=== PATIENT | female | born 1990 | race Caucasian/White ===

== ENCOUNTER 2022-08-30 09:36 | Outpatient (CLI) | payer OTHER, SELFPAY ==
--- NOTE | 2022-08-30 09:45 | CRLHL7_ITS ---
For Patients: As a result of the Cures Act, medical imaging exams and procedure reports are released immediately into your electronic medical record. You may view this report before your referring provider. If you have questions, please contact your health care provider. INDICATION: First trimester scan, establish dates. COMPARISON: None. TECHNIQUE: Real-time álvarez-scale imaging of the pelvis was performed. FINDINGS: Sonographic imaging demonstrates a single living intrauterine gestation. The embryo demonstrates a regular cardiac rate measuring 174 beats per minute. The embryo`s crown-rump length measurement of 1.9 cm corresponds to a gestational age of 8 weeks 3 days with a sonographic due date of 04/08/2023. There is a normal-appearing yolk sac. There are no gross abnormalities noted within the embryo at this early state of development. The gestational sac has a normal appearance. There is no evidence of a perigestational hemorrhage. The amount of fluid within the sac appears appropriate for gestational age. The cervix is closed. The myometrium appears normal. The ovaries are of normal size. Corpus luteal cyst left ovary. There are no suspicious fluid collections noted in the cul-de-sac. IMPRESSION: Normal first trimester OB ultrasound exam. Gestational age calculated at 8 weeks 3 days with a sonographic due date of 04/08/2023. Dictated by Niels Headley MD @ 08/30/2022 12:11:55 PM (Electronically Signed)
== END 2022-08-30 09:37 | disposition home or self-care (01) ==
LOC: US 09:38
PROVIDERS: PCP Physician Assistant Medical; Visit Provider Registered Nurse
DX: Z34.91 Encounter for supervision of normal pregnancy, unspecified, first trimester (principal); Z3A.08 8 weeks gestation of pregnancy
CPT/HCPCS: 76817

== ENCOUNTER 2022-08-30 11:18 | Outpatient (CLI) | payer OTHER, SELFPAY ==
[2022-08-30 17:20] LABS: Chlamydia DNA Amplified* NOT DETECTED (No Detected); GC DNA Amplified* NOT DETECTED (No Detected)
== END 2022-08-30 11:19 | disposition home or self-care (01) ==
PROVIDERS: PCP Physician Assistant Medical; Visit Provider Registered Nurse
DX: Z34.91 Encounter for supervision of normal pregnancy, unspecified, first trimester (principal); Z3A.08 8 weeks gestation of pregnancy
CPT/HCPCS: 86592; 86703; 86762; 86787; 86803; 86850; 86900; 86901; 87086; 87340; 87491; 87591

== ENCOUNTER 2023-01-17 12:59 | Outpatient (CLI) | payer BC, SELFPAY | END 2023-01-17 13:00 | disposition home or self-care (01) | PROVIDERS: PCP Physician Assistant Medical; Visit Provider Obstetrics & Gynecology | DX: Z34.93 Encounter for supervision of normal pregnancy, unspecified, third trimester (principal); Z3A.28 28 weeks gestation of pregnancy | CPT/HCPCS: 86592 ==

== ENCOUNTER 2023-01-23 08:32 | Outpatient (CLI) | payer BC, SELFPAY | END 2023-01-23 08:33 | disposition home or self-care (01) | LOC: NFLDREF 01-24 04:07 | PROVIDERS: PCP Physician Assistant Medical; Referring Provider Physician Assistant Medical; Visit Provider Obstetrics & Gynecology | DX: Z34.93 Encounter for supervision of normal pregnancy, unspecified, third trimester (principal) | CPT/HCPCS: 82951; 82952 ==

== ENCOUNTER 2023-03-01 12:51 | Outpatient (CLI) | payer BC, SELFPAY ==
[2023-03-01 23:05] LABS: Ferritin* 17.3 ng/mL (6.24-137.0)
== END 2023-03-01 12:52 | disposition home or self-care (01) ==
LOC: FRMREF 12:52
PROVIDERS: PCP Physician Assistant Medical; Visit Provider Registered Nurse
DX: Z34.93 Encounter for supervision of normal pregnancy, unspecified, third trimester (principal); Z3A.34 34 weeks gestation of pregnancy
CPT/HCPCS: 82728

== ENCOUNTER 2023-03-12 10:13 | Outpatient (CLI) | payer BC, SELFPAY | END 2023-03-12 10:14 | disposition home or self-care (01) | LOC: NFLDREF 03-15 09:31 | PROVIDERS: PCP Physician Assistant Medical; Referring Provider Physician Assistant Medical; Visit Provider Obstetrics & Gynecology | DX: Z34.90 Encounter for supervision of normal pregnancy, unspecified, unspecified trimester (principal) | CPT/HCPCS: 87081; 87653 ==

== ENCOUNTER 2023-03-30 20:52 | Inpatient (IN) | payer BC, SELFPAY ==
[2023-03-30] VITALS (7 sets, daily range): BP systolic 115; BP diastolic 79; PULSE 88–99; RESP 16; TEMP 36.5–36.9; O2SAT 97–98; BMI 32.1
[2023-03-30 20:36] LABS: Amnisure Rom* POSITIVE
[2023-03-30] MEDS: LACTATED RINGERS 1000 ML 1,000 ML 125 ML IV (21:03)
--- NOTE | 2023-03-30 21:42 | W.PM.LDBA ---
Subjective History of Present Illness Narrative: Patient is being admitted to Labor and Delivery in labor. She is a 32 year old at 38 3/7 weeks gestation. Her full history and physical was dictated by Ligia Jack CNM on 03/28/23. Please see this for details.Patient states that at around 6:30 pm tonight felt a watery like discharge and more intense uterine contractions. Upon evaluation at L&D by nurses AmniSure positive, regular uterine contractions and cervix from 1.5cm to 3cm. Patient admitted in labor. Specific Issues/Plans : Kai. Daughter: Ilsa. Baby: Girl! H&P done by Ligia Jack CNM on 03/28/2023 1. H/o genital HSV (not disclosed at first OB visit). Prophylaxis at 36 weeks, ordered on 03/01. 2. H/o migraines. Has rx for fioricet. Rec. magnesium supplement. 3. H/o anxiety and depression. Doing well at first OB visit. Does not have therapist. Hasn't taken meds for years. 4. Elevated 28wk 1hr GTT 01/17/23: 179 3hr GTT: Passed 5. Mild anemia at 28 weeks: hgb 10.6 - Hgb 10.3 at 34 weeks despite PO iron supplement. Iron infusion ordered, insurance processing ongoing. Recheck Hgb to be ordered 2 weeks following infusion. 6. GBS positive. Amoxicillin and pencillin allergy - hives noted in chart. Flu: 03/21/23 Covid: J+J x1, no boosters. Recommended. Tdap 02/01/23 OB - Problem Based A/P Additional Plan (1) SROM (spontaneous rupture of membranes): Status: Acute Plan 1. GBS positive, significant allergy to penicillin, will start Vancomycin per protocol. 2. SROM, re check cervix in 4-6 hours unless significant clinical changes. 3. Patient confirms she has been utilizing valacyclovir for HSV prevention, no symptoms currently, no visible lesions. 4. Patient desires unmedicated labor, but no contraindication for this if she changes her mind. 5. If unchanged at next cervical check would recommend starting IV Oxytocin. 6. Expect a vaginal delivery. OB Exam Physical Exam Vital signs: Temp Pulse Resp BP Pulse Ox 97.7 F 88 16 115/79 98 03/30/23 21:08 03/30/23 19:55 03/30/23 19:55 03/30/23 19:55 03/30/23 19:55 Detailed Labor and Delivery Exam Patient Gravid: Yes Dilation (cm): 3 Tachysystole: No Contraction intensity: Moderate Fetus (Single) Amniotic Membrane Status: SROM (6:30pm) Amniotic Membrane Fluid Description: Clear Heart Rate Baseline: 125 Monitor Accelerations: Present Monitor Decelerations: None Senior Care Variability: Moderate (6-25)
[2023-03-30 22:30] LABS: Basophils Absolute Auto 0.02 K/uL (0.00-0.30); Basophils Percent Auto 0.2 % (0.0-3.0); Eosinophils Absolute Auto 0.03 K/uL (0.00-0.50); Eosinophils Percent Auto 0.3 % (0.0-7.0); Hematocrit 32.1 % (33.0-51.0); Hemoglobin* 11.3 gm/dL (12.0-16.0); Immature Granulocytes Abs Auto 0.17 K/uL (0.00-0.30); Immature Granulocytes Pct Auto 1.7 %; Lymphocytes Absolute Auto 2.42 K/uL (0.90-2.90); Lymphocytes Percent Auto 24.6 % (20-44); Mean Corpuscular HGB Conc 35 gm/dL (32-36); Mean Corpuscular Hemoglobin 33 pg (26-34); Mean Corpuscular Volume 93 fL (80-100); Monocytes Percent Auto 8.1 % (0.0-11.0); Neutrophils Absolute Auto 6.39 K/uL (1.7-7.0); Neutrophils Percent Auto 65.1 % (42.0-72.0); Platelet Count* 173 K/uL (140-440); RDW Coefficient of Variation % 14.6 % (11.5-15.5); Red Blood Count 3.45 m/uL (4.00-5.20); White Blood Count* 9.83 K/uL (4.50-11.00)
[2023-03-30 22:40] LABS: Slide Review Reflex No
[2023-03-31] VITALS (24 sets, daily range): BP systolic 108–139; BP diastolic 65–79; PULSE 44–110; RESP 16; TEMP 36.4–37; O2SAT 81–100
[2023-03-31] MEDS: OXYTOCIN 30 unit/500 ML in NS 30 UNIT/500 ML BAG 300 UNIT IVPB (03:08)
[2023-03-31] MEDS: LIDOCAINE 1 % PF 30 ML INJECTION (03:15)
--- NOTE | 2023-03-31 03:39 | W.PM.OBVAGDE ---
OB Procedure Vag Delivery Mother Details Mother Details: The patient is a 33 year-old, 2, Para 1, admitted on 03/30/23 at 38 3/7 weeks gestation in labor for delivery. : 2 Para: 2 Weeks Gestation: 38.4 Admission Date: 03/30/23 Additional Details Amniotic Membrane Status: SROM (6:30pm) Amniotic Membrane Rupture Date: 03/30/23 Amniotic Membrane Rupture Time: 18:45 Amniotic Membrane Fluid Description: Clear Analgesia/Anesthesia Type: None Waterbirth: No Pitcoin: No Intrapartal Events: None Labor Onset: 23:30 Complete: 02:34 Pushin:36 Heart: heart tones during second stage were category 2. Early decelerations some with slower recover while . Good accelerations with scalp stimulation. Delivery Details Delivery Date: 03/31/23 Delivery Time: 03:08 Route of delivery: Gender: Female Viability: Alive; Heart Rate Present Position at Delivery: OA Delivery Details: Delivered over intact perineum via spontaneous vaginal delivery. was placed on maternal abdomen.? Cord was clamped and cut after a 30-60 second delay. Nose and mouth were bulb suctioned.? Infant weight pending. 1 Minute Interval Total Score: 8 5 Minute Interval Total Score: 9 Additional Details Shoulder Dystocia: No Placenta Delivery Time: 03:14 Placental Delivery Description: Spontaneous Delivery repair: Vicryl Procedure Done: Global Blood Loss: 300 Laceration: Perineal - 2nd Degree Episiotomy Description: None Blood Loss Measurement Type: QBL Bakri Used: No Sponge/Need Count Correct: Yes Cord Vessel Description: 3 Vessels Event Summary Status: Mother and were stable after delivery. Disposition: floor
[2023-03-31] MEDS: LANOLIN CREAM 1 APPLIC TOPICAL (04:00)
[2023-03-31] MEDS: IBUPROFEN 600 MG TABLET PO ×3 (04:17→22:30)
[2023-03-31] MEDS: ACETAMINOPHEN 500 MG TABLET 1000 MG PO ×2 (08:32→19:34)
[2023-03-31] MEDS: DOCUSATE SODIUM 100 MG CAPSULE PO (08:33)
[2023-04-01 01:22] VITALS: BP 104/72; PULSE 76; RESP 16; TEMP 36.4; O2SAT 97
[2023-04-01] MEDS: IBUPROFEN 600 MG TABLET PO (04:18)
[2023-04-01 06:38] LABS: Hemoglobin* 9.9 gm/dL (12.0-16.0)
[2023-04-01 08:30] VITALS: BP 101/67; PULSE 77; RESP 16; TEMP 36.5; O2SAT 95
[2023-04-01] MEDS: DOCUSATE SODIUM 100 MG CAPSULE PO (08:34)
--- NOTE | 2023-04-01 09:14 | P.DS_ITS ---
DS: Providers Provider Time Seen by Provider: 09:14 Date Seen: 04/01/23 Date of admission: 03/30/23 20:52 Primary care physician: Lucas Trevizo PA-C Admitting Clinician: Rosalie Montesinos MD Attending Physician on discharge: Jorgito Brooks MD DS: Diagnosis Discharge Diagnosis (1) Vaginal delivery: Status: Acute (2) Lactating mother: Status: Acute (3) Depression: Status: Acute (4) Anxiety: Status: Acute (5) SROM (spontaneous rupture of membranes): Status: Acute (6) Genital herpes: Status: Acute Exam Narrative: Exam Narrative: General: No acute distress Psych: Alert and oriented x 3, full affect HEENT: Normocephalic, atraumatic Abdomen: Normoactive bowel sounds, soft, no tenderness, rebound, or guarding, no masses, no hepatosplenomegaly, no hernias. Fundus at 1 below U. Extremities: Trace pedal edema. No calf tenderness, erythema or swelling. Vital signs within normal limits. Adequate urine output. Const: Vital Signs, click to edit/add: Vital Signs - 24 hr 03/31/23 12:40 03/31/23 16:08 03/31/23 19:57 Temperature 98.4 F 98.4 F 98.6 F Pulse Rate [Pulse Oximeter] 81 82 87 Respiratory Rate 16 16 16 Blood Pressure [Ri ght Arm] 111/71 122/79 108/68 Pulse Oximetry 96 97 96 Oxygen Delivery Me thod Room Air Room Air Room Air 04/01/23 01:22 04/01/23 08:30 Temperature 97.6 F 97.7 F Pulse Rate [Pulse Oximeter] 76 77 Respiratory Rate 16 16 Blood Pressure [Ri ght Arm] 104/72 101/67 Pulse Oximetry 97 95 Oxygen Delivery Me thod Room Air Room Air OB - DS: Summary Hospital Course Hospital Course: The patient is a 33 year old G 2 P 2 at 38 weeks gestation that was admitted to the Center on 03/30/23 for spontaneous rupture of membranes. She had an uncomplicated vaginal delivery. She delivered a viable female infant. She is br east feeding. the patient has done well. On rounds this morning, patient is feeling well with no acute concerns. She notes her pain is overall mild, on ibuprofen and Tylenol alone. Appetite at baseline, no nausea/vomiting. Voids without difficulty. Passing gas, has not yet had a bowel movement. He ambulates without difficulty, no dizziness or lightheadedness. No calf pain, tenderness or erythema. She is breast-feeding without difficulty. Peripartum Data Infant delivery method: Vaginal Laceration description: None complications: none Perry Infant Gender: Female Time Spent with Patient Time attestation: Total time spent providing and/or coordinating discharge services: 15 mins Discharge Plan Discharge Disposition: Home, Self-Care Date of Admission: 03/30/23 20:52 Primary Care Provider: Lucas Trevizo Condition: Stable Anticipated Discharge Date/Time: 04/01/23 09:18 Discharge Medications: Continued DHA 200 mg capsule 200 mg PO DAILY acetaminophen 325 mg tablet 325 mg PO PRN PRN Rx Instructions: NO MORE THAN 4000 MG/DAY docusate sodium 100 mg tablet 100 mg PO DAILY PRN Rx Instructions: Take 1-2 times a day as needed for constipation [id number] 50-300-40 mg capsule 1 cap PO Q8H PRN (Reason: pain) sumatriptan 5 mg/actuation spray,non-aerosol 5 mg intranasal Q2-4H PRN (Reason: migraine headache) Qty: 6 1RF Rx Instructions: into each nostril once; if headache remains, may repeat total dose once after at least 2 hours sumatriptan succinate 25 mg tablet See Rx Instructions PO .COMPLEX Qty: 30 5RF Rx Instructions: take 1 tab at onset of headache; if no relief may repeat 1 tab after at least 2 hrs; max = 4 tabs/24 hr PO Discontinued valacyclovir 500 mg tablet 500 mg PO BID Qty: 60 2RF Discharge Orders: Discharge Order (Routine); Ordered 04/01/23 Ordered By: Kami Brooks Patient Education: OB Over the Counter Medication Information, OB Vaginal/Breast Feeding Additional Instructions: Discharge instructions were reviewed with the patient including signs and symptoms of infection and home going medications Nothing vaginally for 6 weeks: no tampons or intercourse Do not drive while taking narcotic pain medication(s) Off Work or School for 8 weeks Symptoms to report to doctor: * Bleeding that saturates more than one pad per hour * Passing clots larger than the size of a golf ball * Pain not relieved by prescribed medication * Fever above 100.4 degrees Fahrenheit * A foul vaginal odor * Difficulty in emotions, mood, and functions * Thoughts of hurting yourself and/or * Painful, reddened area in your breast * Any drainage, redness, or tenderness in your IV/epidural site * Severe headache that doesn't improve after taking medications * Changes in vision, including temporary loss of vision, blurred vision, and/or light sensitivity * Upper abdominal pain (usually under ribs on the right side) * Decrease in urination or painful, frequent urinating * Chest pain * Shortness of breath * Tenderness or pain with redness and/swelling in the calf(s) of your leg Optional 2-week visit: discuss feeding concerns, review control options and screen for anxiety/depression. 6-week visit for an annual exam. consultation services are available to all mothers and babies for the first year after delivery.? To make an appointment, please call [phone]. Activity Level: Activity as Tolerated Discharge Diet: Regular Follow Up Appointments: Lucas Trevizo PA-C [Primary Care Provider] - Forms: MyHealth Info Instructions
--- NOTE | 2023-04-02 09:57 | PC.NURSE ---
RN spoke with YESSI Terrell in OB this morning and it was confirmed that pt declined any iron injections at this time. Original order for Injectafer was denied, she did not want to pursue any other options. Per OB RN this was a patient message from the portal. UR updated. [facility] is no longer following.
== END 2023-04-01 15:04 | disposition home or self-care (01) | DRG 560 ==
LOC: OB OUT 20:53 → OB 20:53
PROVIDERS: Admitting Provider Obstetrics & Gynecology; PCP Physician Assistant Medical; Visit Provider Obstetrics & Gynecology
DX: O99.824 Streptococcus B carrier state complicating childbirth (principal); O70.1 Second degree perineal laceration during delivery; O98.32 Other infections with a predominantly sexual mode of transmission complicating childbirth; A60.00 Herpesviral infection of urogenital system, unspecified; Z3A.38 38 weeks gestation of pregnancy; Z37.0 Single live birth
CPT/HCPCS: 36415; 84112; 85018; 85025; 86850; 86900; 86901; A9270; J2001; J3370; J7120

== ENCOUNTER 2023-04-04 08:39 | Outpatient (CLI) | payer BC, SELFPAY ==
--- NOTE | 2023-04-04 17:00 | W.PM.LAC.MC ---
Consult Note - Mom Date of Visit Date of visit: 04/04/23 [employer] retailer sales consultant: Rossy Lowe Visit Code: Visit Patient's Information Phone number: [phone] : 2 Para: 2 Allergies gluten Allergy (Intermediate, Verified 04/13/23 09:53) Headache amoxicillin Allergy (Mild, Verified 04/13/23 09:53) Hives Penicillins Allergy (Mild, Verified 04/13/23 09:53) Hives Mother's Medical History: Medical History (Updated 04/05/23 @ 00:00 by Background Daemon) Genital herpes ?A60.00 - Herpesviral infection of urogenital system, unspecified (ICD-10) Headaches Delivery Information Delivery type: Vaginal Weeks Gestation: 38.4 Gestational Age: AGA Weight: 3.43 kg Discharge Weight: 3.298 kg Baby's Information Baby's Age at Visit: 4 days Baby's Provider or Clinic: Dr. Neff Jaundice: No Reason for Consult Reason for Consult: engorgement, painful latch, damaged nipples Past Experience Past Experience: Yes (nursed her older daughter over 6 months) Current Frequency of Day Feedings: about every three hours Both Breasts: No (mom hasn't nursed for about 12 hours d/t the pain) Pumping Pumping: Yes (about every three hours) Quantity Pumped: 2 - 4 oz total each time Supplementing EMB Supplement: Yes (1 - 1.5 oz every three hours) Formula Supplement: No Baby Elimination Number of Wet Diapers a Day: 8 or more Number of BM a Day: 6 - 8, yellow and seedy Breast/Nipple Condition Engorgement: Yes Interventions for Engorgement: Warm Pack, Cold Pack and Pump Maternal Nipple Condition - Left: Common Nipple and Other (scabbing) Maternal Nipple Condition - Right: Common Nipple and Other (scabbing) Sore Nipples: Yes Onsite Pre-Feed weight: 3.3 kg Post-Feed weight: 3.352 kg Milk Transferred (mL): 52 Assessments/Interventions Assessments/Interventions: Met with mom and this now 4 day old ex- term AGA baby for consult. Mom is tearful stating has become so painful she had to stop about 12 hours ago. States her nipples are damaged and were bleeding. She also reports engorgement that she can't resolve which is contributing to her pain. She reports baby was nursing (up until 12 hours ago) about every three hours. Mom switched to pumping with every feeding and gets between 2 - 4 oz total each time. Baby takes 1 - 1.5 oz EBM every three hours but had a few episodes of cluster feeding as well. Mom reported her milk started coming in late in the evening on 04/01 but she really started to get uncomfortable on 04/03. Breasts are engorged and look painful, intramammary distance < 1.5 inches. Nipples are everted and don't flatten or retract on compression. Both nipples are damaged but scabbing, the left has more damage. Baby was seen for her NB visit on 04/03 and has gained 40 grams overnight. She's now 130 grams (4 oz) below BW at 4 DOL. Mom denied any caput/cephalohematoma at delivery and states baby has equal ROM when turning her head and moving her extremities. Baby's palate is WNL, her upper frenulum is tight as it's difficult to flange her upper lip and the gums maite. She has a strong suck on a finger and her tongue consistently extends past the gum line. The tongue has good lateral movement to the right, but baby has more trouble getting it to lateralize to the left. The posterior frenulum wasn't visualized, posterior? Due to mom's engorgement we worked for 10 - 15 minutes in softening the breasts with breast gymnastics, gentle massage, and hand expression. Once her breasts had softened a little, she attempted to latch baby on the right side. Initially it was quite painful but when she was coached to sandwich the breast, point nipple to nose, and bring baby to her quickly when she opened wide, mom was able to get a deeper latch after a few attempts stated her pain was at a 3 - 4/10. Baby nursed 10 - 15 minutes before falling asleep and coming off the breast. We attempted to latch her to the left side but she was too sleepy. She was weighed and had transferred 52 ml. Mom reported the right side was comfortable, but the left side wasn't as much. She was encouraged to go home and do more massage and hand expression or could try her Haakaa. She was measured and a flange size was suggested, handout given. Also gave instruction on nipple care. Plan: 1. Continue to nurse baby ALD- usually at this age it's every 1.5 - 3 hours. Suggested she use the ideas above to get as wide a latch as possible and offer both sides. 2. If needed, use the ideas above to help with engorgement. She can try relieving the engorgement before nursing and/or prn between feedings. Reassured her she should start to feel better in the next day or two. Referred her to a few videos on hand expression. 3. No medical need to pump and give EBM but if nursing is too painful then she should pump for the missed nursing session. Reviewed paced feeding. She can also use the pump to help with engorgement, but the other ideas mentioned often work better. Instructed her to only pump to comfort if she's using it to help with engorgement. 4. Suggested craniosacral therapy or a chiropractor visit for her and baby as they're both probably tight and a little out of alignment. Gave handout on stretches for her and baby as well. 5. Baby has a 2 week WCC with PCP and I will call on 04/11 to see how mom is feeling. Meds Home Medications and Allergies Home Medications Medication Instructions Recorded Confirmed Type docosahexaenoic acid 200 mg 200 mg PO DAILY 08/30/22 04/13/23 History capsule ( DHA) docusate sodium 100 mg tablet 100 mg PO DAILY PRN 03/30/23 04/13/23 History Allergies Allergy/AdvReac Type Severity Reaction Status Date / Time gluten Allergy Intermediate Headache Verified 04/13/23 09:53 amoxicillin Allergy Mild Hives Verified 04/13/23 09:53 Penicillins Allergy Mild Hives Verified 04/13/23 09:53
== END 2023-04-04 08:40 | disposition home or self-care (01) ==
LOC: OB LAC 08:40
PROVIDERS: PCP Physician Assistant Medical; Visit Provider Obstetrics & Gynecology
DX: Z39.1 Encounter for care and examination of lactating mother (principal)
CPT/HCPCS: 99211